=== PATIENT | male | born 1985 | race Caucasian/White ===

== ENCOUNTER 2021-12-01 15:27 | Emergency (ER) | payer SELFPAY ==
[2021-12-01] MEDS ORDERED: Fluorescein Opthalmic Strip ONE ×2 (17:12→18:27)
[2021-12-01] MEDS ORDERED: Tetracaine 0.5% PF 4 ML BOT ONE (17:12)
[2021-12-01] MEDS ORDERED: Ketorolac Tromethamine 30 MG/ML VIAL ONE (17:45)
[2021-12-01] MEDS ORDERED: Ciprofloxacin 0.3% Ophth Soln 2.5 ml Bottle R EYE SCH (19:00)
== END 2021-12-01 19:24 | disposition home or self-care (01) ==
LOC: CSHERS 15:27
DX: T15.01XA Foreign body in cornea, right eye, initial encounter (principal); F17.210 Nicotine dependence, cigarettes, uncomplicated; X58.XXXA Exposure to other specified factors, initial encounter; Z87.19 Personal history of other diseases of the digestive system
CPT/HCPCS: 65222; 96372; J1885

== ENCOUNTER 2024-06-29 12:52 | Emergency (ER) | payer SELFPAY | END 2024-06-29 14:10 | disposition home or self-care (01) | LOC: CSHERS 12:52 | DX: J18.9 Pneumonia, unspecified organism (principal); F17.210 Nicotine dependence, cigarettes, uncomplicated | CPT/HCPCS: 71046 ==